=== PATIENT | female | born 1955 | race African-American/Black ===

== ENCOUNTER → 2018-12-07 11:38 | Emergency (ER) | payer MEDICARE, MEDICAID ==
[~2018-12-07 11:38] MED LIST: Acetaminophen TAB* 325 MG PO ONE
--- NOTE | 2018-12-07 13:55 | ED ---
Upper Extremity Pain - HPI Summary HPI Summary: A 63 y/o F presents to ED s/p mechanical fall c/o R hand pain onset approx 1130. Patient fell in the driveway while getting out of the car. She denies head trauma and was able to ambulate afterwards. She twisted her R 4th finger, it is numb, swollen and bruised. She takes Coumadin. Denies recreational drugs, ETOH. 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 - History of Current Complaint Chief Complaint: EDFall Stated Complaint: FELL DOWN/HURT PER PT Time Seen by Provider: 12/07/18 13:50 Hx Obtained From: Patient, Family/[employer] Mechanism Of Injury: Other - fall Onset/Duration: Started Hours Ago, Traumatic - fall, Still Present Timing: Constant Severity Initially: Severe Severity Currently: Severe Pain Location: Finger - Right 4th finger Associated Signs & Symptoms: Positive: Swelling, Bruising, Numbness/Tingling, Other - neg: chills, erythema of eyes, sore throat, cough, abdominal pain, dysuria, hematuria, edema, rash, or dizziness. Negative: Fever, Chest Pain, SOB , Nausea, Vomiting - Allergies/Home Medications Allergies/Adverse Reactions: Allergies Allergy/AdvReac Type Severity Reaction Status Date / Time Adhesive Tape Allergy Rash Verified 12/07/18 11:52 nicardipine Allergy Difficulty Verified 12/07/18 11:52 Breathing Sulfa (Sulfonamide Allergy Unknown Verified 12/07/18 11:52 Antibiotics) Reaction Details PMH/Surg Hx/FS Hx/Imm Hx Previously Healthy: No Endocrine/Hematology History: Reports: Hx Anticoagulant Therapy, Hx Systemic Lupus Erythematosus Denies: Hx Diabetes, Hx Thyroid Disease Comment Only: Other Endocrine/Hematological Disorders - Lupus Cardiovascular History: Reports: Hx Deep Vein Thrombosis, Hx Hypertension - on med, Other Cardiovascular Problems/Disorders - CVA Respiratory History: Reports: Hx Asthma - ?uses albuterol and possibly another medication, Hx Chronic Obstructive Pulmonary Disease (COPD) - ? GI History: Reports: Other GI Disorders - Hx Hep C Denies: Hx Ulcer History: Reports: Hx Acute Renal Failure, Hx Renal Disease - stage 2 per pt, Other Problems/Disorders - Hx genital herpes simplex Denies: Hx Dialysis Sensory History: Denies: Hx Cataracts, Hx Contacts or Glasses, Hx Eye Injury, Hx Eye Prosthesis, Hx Glaucoma, Hx Macular Degeneration, Hx Vision Problem, Hx Deafness , Hx Hearing Aid, Hx Hearing Problem, Other Sensory Impairments Opthamlomology History: Denies: Hx Cataracts, Hx Contacts or Glasses, Hx Eye Injury, Hx Eye Prosthesis, Hx Glaucoma, Hx Macular Degeneration, Hx Vision Problem, Other Sensory Impairments Neurological History: Reports: 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 THYROIDECTOMY - Immunization History Date of Tetanus Vaccine: unknown Infectious Disease History: No Infectious Disease History: Denies: Hx Clostridium Difficile, Hx Hepatitis, Hx Human Immunodeficiency Virus (HIV), Hx of Known/Suspected MRSA, Hx Shingles, Hx Tuberculosis, Hx Known/ Suspected VRE, Hx Known/Suspected VRSA, History Other Infectious Disease, Traveled Outside the [place] in Last 30 Days - Family History Family History: neg: breast CA - Social History Occupation: Disabled Lives: With Family Alcohol Use: None Alcohol Amount: none in 4 yrs Hx Substance Use: No Substance Use Type: Reports: None Hx Tobacco Use: Yes - not currently smoking Smoking Status (MU): Former Smoker Amount Used/How Often: started smoking at 16 y.o. Have You Smoked in the Last Year: No Review of Systems Negative: Fever, Chills Negative: Erythema Negative: Sore Throat Negative: Chest Pain Negative: Shortness Of Breath, Cough Negative: Abdominal Pain, Vomiting, Nausea Negative: dysuria, hematuria Musculoskeletal: Other - pos: swelling to R 4th finger Positive: Myalgia - R 4th finger. Negative: Edema Positive: Bruising - R 4th finger Neurological: Other - neg: dizziness All Other Systems Reviewed And Are Negative: Yes Physical Exam - Summary Physical Exam Summary: Constitutional: Well-developed, Well-nourished, Alert, Cooperative Skin: Warm, Dry HENT: Normocephalic; No Racoons eyes; No roque's sign; No abrasion; No contusion; No hemotympanum; No maxilla facial tenderness or instability; Dentition are smooth; No dental trauma; No trismus Eyes: EOM normal, PERRL Neck: Trachea is midline. No stridor; No JVD; No step off; No posterior cervical spine tenderness Cardio: Rhythm regular, rate normal Heart sounds normal; Intact distal pulses; The pedal pulses are 2+ and symmetric. Radial pulses are 2+ and symmetric. Pulmonary/Chest wall: Effort normal; Breath sounds normal; Equal chest rise; No flail segment; No rib tenderness; No sternal tenderness Abd: Soft, Appearance normal. No distension; No tenderness; No palpable pulsatile mass; No Cullens sign; No Gordillo-Turners sign Musculoskeletal: No snuff box tenderness to R hand; tenderness over metacarpals on R hand; PIP of R 4th finger is swollen. Full ROM and no tenderness at hips, ankles, shoulders, elbows and knees; No vertebral body tenderness; No paraspinal tenderness; No step off or deformity of the spine; Pelvis is stable to lateral compression and rock Neuro: Alert, Oriented x3, Strength 5/5 all extremities. Psych: Mood and affect Normal Triage Information Reviewed: Yes Vital Signs On Initial Exam: Initial Vitals Temp Pulse Resp BP Pulse Ox 97.2 F 59 16 132/74 97 12/07/18 11:48 12/07/18 11:48 12/07/18 11:48 12/07/18 11:48 12/07/18 11:48 Vital Signs Reviewed: Yes Diagnostics - Vital Signs Vital Signs Temp Pulse Resp BP Pulse Ox 12/07/18 11:48 97.2 F 59 16 132/74 97 - Laboratory Lab Statement: Any lab studies that have been ordered have been reviewed, and results considered in the medical decision making process. - Radiology R HAND XR Radiology Interpretation Completed By: ED Physician Summary of Radiographic Findings: Proximal phalanx fracture including joint space. Re-Evaluation - Re-Evaluation 1 Re-Evaluation Time: 15:45 Change: Unchanged Comment: Discussing XR and plans for discharge. Placing finger splint. Course/Dx - Course Course Of Treatment: Patient is a 63 y/o F presenting s/p mechanical fall c/o R hand pain onset approx 1130. She denies head trauma and was able to ambulate afterwards. She twisted her R 4th finger, it is numb, swollen and bruised. PE finds no snuff box tenderness to R hand; tenderness over metacarpals on R hand; PIP of R 4th finger is swollen. R hand XR shows a proximal phalanx fracture including joint space as viewed by ED provider. Splint placed. Will discharge home to follow up with Dr. Bolivar in 2-3 days. Tylenol and Motrin for pain. - Diagnoses Provider Diagnoses: Fracture of proximal phalanx of right ring finger Discharge - Sign-Out/Discharge Documenting (check all that apply): Patient Departure - D/C Patient Received Moderate/Deep Sedation with Procedure: No - Discharge Plan Condition: Stable Disposition: HOME Patient Education Materials: Finger Fracture (ED) Referrals: Brad Galarza MD [Primary Care Provider] - Dylan Bolivar MD [Medical Doctor] - 3 Days Additional Instructions: Take Tylenol and Motrin for pain as needed. Follow up with sandra Neumann, in 2-3 days. Return to the emergency department for changing or worsening symptoms. - Billing Disposition and Condition Condition: STABLE Disposition: Home - Attestation Statements Document Initiated by Scribe: Yes Documenting Scribe: Laura Wise Provider For Whom Scribe is Documenting (Include Credential): Dr. Keaton Sheehan MD Scribe Attestation: Laura Mosqueda scribed for Dr. Keaton Sheehan MD on 12/08/18 at 1049. Scribe Documentation Reviewed: Yes Provider Attestation: The documentation as recorded by the Laura leung accurately reflects the service I personally performed and the decisions made by , Dr. Keaton Sheehan MD Status of Scribe Document: Viewed
[2018-12-07 15:52] VITALS: BP 144/76
== END | disposition home or self-care (01) ==
LOC: ED 11:38
DX: S62.614A Displaced fracture of proximal phalanx of right ring finger, initial encounter for closed fracture (principal); W19.XXXA Unspecified fall, initial encounter; Y92.9 Unspecified place or not applicable; Z79.01 Long term (current) use of anticoagulants; Z86.73 Personal history of transient ischemic attack (TIA), and cerebral infarction without residual deficits; Z88.2 Allergy status to sulfonamides; Z87.39 Personal history of other diseases of the musculoskeletal system and connective tissue; I10 Essential (primary) hypertension; Z87.891 Personal history of nicotine dependence; N19 Unspecified kidney failure; M19.041 Primary osteoarthritis, right hand
CPT/HCPCS: 99282; A9270-GY

== ENCOUNTER 2021-12-06 12:03 | Inpatient (IN) ==
[2021-12-06 12:48] LABS: ABS Eosinophils 0.1 10^3/ul (0-0.6); ABS Lymphocytes 1.8 10^3/ul (1.0-4.8); ABS Monocytes 0.3 10^3/ul (0-0.8); ABS Neutrophils 6.4 10^3/ul (1.5-7.7); Eosinophil % 1.2 %; Hematocrit 30 % (35-47); Hemoglobin 9.6 g/dL (12.0-16.0); Lymphocyte % 21.1 %; Mean Corpuscular HGB Conc 32 g/dL (31-36); Mean Corpuscular Hemoglobin 29 pg (27-31); Mean Corpuscular Volume 92 fL (80-97); Mean Platelet Volume 10.2 fL (7.4-10.4); Platelet Count 221 10^3/uL (150-450); Red Blood Count 3.27 10^6 /uL (3.70-4.87); Red Cell Distribution Width 17 % (10-15); White Blood Count 8.6 10^3/uL (3.5-10.8)
[2021-12-06] MEDS ORDERED: Dexamethasone IV 4 MG/ML VIAL 1 ml VIAL IV SLOW PU ONE (12:58)
[2021-12-06] MEDS ORDERED: Albuterol HFA INHALER 8 gm MDI INH ONE (12:58)
[2021-12-06 12:59] LABS: INR 2.99 (0.86-1.15)
[2021-12-06 13:21] LABS: Albumin 2.7 g/dL (3.2-5.2); Albumin/Globulin Ratio 0.8 (1-3); Calcium 7.8 mg/dL (8.6-10.3); Globulin 3.2 g/dL (2-4); Total Bilirubin 0.4 mg/dL (0.2-1.0); Total Protein 5.9 g/dL (6.4-8.9); eGFR CKD-EPI 29.9 (>60)
[2021-12-06 14:30] LABS: High Sensitivity Troponin 1 Hr 22 pg/mL (<15)
[2021-12-06] MEDS ORDERED: cefTRIAXone 1 gm/50 mL D5W 1 GM/50 ML BAG IV ONE (16:01)
[2021-12-06] MEDS ORDERED: Azithromycin 500 mg/250 ml NS 500 MG/250 ML BAG IVPB ONE (16:01)
[2021-12-06] MEDS ORDERED: NS 0.9% 1000 ml BAG 1,000 ML IV ONE (16:07)
[2021-12-06] MEDS ORDERED: Warfarin - No Order Today **NOTE FOLLOW UP ONE (17:00)
[2021-12-06 17:48] LABS: Urine Appearance Cloudy; Urine Bilirubin Negative (Negative); Urine Blood Negative (Negative); Urine Color Yellow; Urine Glucose 1+(50 mg/dL) (Negative); Urine Ketones Negative (Negative); Urine Nitrite Negative (Negative); Urine Protein 3+(>=500 mg/dL) (Negative); Urine Specific Gravity 1.009 (1.002-1.030); Urine Urobilinogen Negative (Negative)
[2021-12-06 17:52] LABS: Urine Bacteria Absent (Absent); Urine Red Blood Cell Absent (Absent); Urine Squamous Epithelial Cell Present (Absent); Urine White Blood Cell Absent (Absent)
[2021-12-06 18:02] LABS: Urine Creatinine Concentration 46.4 mg/dL
[2021-12-06 18:40] LABS: Urine Osmo 360 mOsm/kg (150-1150)
[2021-12-06] MEDS ORDERED: SODIUM ZIRCONIUM CYCLOSILICATE 10 GM PACKET PO ONE (18:58)
[2021-12-06] MEDS ORDERED: Warfarin per PHARMACY **NOTE FOLLOW UP SCH (19:00)
[2021-12-06] MEDS ORDERED: Enoxaparin 40 MG/0.4 ML SYR SUBCUT SCH (19:00)
[2021-12-06 19:17] LABS: C Reactive Protein 38.67 mg/L (<8.01); Magnesium 1.3 mg/dL (1.9-2.7); Phenytoin 3.7 mcg/mL (10-20)
[2021-12-06 19:31] LABS: TSH Ultra Thyroid Stim Horm 5.14 mcIU/mL (0.34-5.60)
[2021-12-06] MEDS ORDERED: Magnesium Sulf 4 GM/100 ML IV 4,000 MG/100 ML BAG IVPB ONE (19:47)
[2021-12-06] MEDS ORDERED: hydrALAZINE 20 mg/ml 1 ML Vial IV IV SLOW PU PRN (19:54)
[2021-12-06] MEDS: Albuterol HFA INHALER 8 gm MDI INH PRN (20:25)
[2021-12-06] MEDS: Phenytoin 100 mg ER CAP PO SCH (20:27)
[2021-12-06 20:29] LABS: PCO2 Arterial 25 mmHg (35-45); PO2 Arterial 92 mmHg (80-100)
[2021-12-06 21:02] LABS: Calcium 7.4 mg/dL (8.6-10.3); eGFR CKD-EPI 31.9 (>60)
[2021-12-06 21:04] LABS: Potassium 6.2 mmol/L (3.5-5.0)
[2021-12-06] MEDS ORDERED: Dextrose 50% Syringe 50 ml 25 GM/50 ML SYRINGE IV PUSH ONE (21:09)
[2021-12-06 21:28] LABS: Osmolality Serum 306 mOsm/kg (275-295)
[2021-12-06] MEDS ORDERED: NS 0.9% 1000 ml BAG 1,000 ML IV SCH (21:30)
[2021-12-06] MEDS: CYCLOSPORINE 25 MG PO SCH (22:38)
[2021-12-07 07:03] LABS: ABS Monocytes 0.6 10^3/ul (0-0.8); Eosinophil % 0.5 %; Hematocrit 26 % (35-47); Hemoglobin 8.4 g/dL (12.0-16.0); Lymphocyte % 26.2 %; Mean Corpuscular HGB Conc 33 g/dL (31-36); Mean Corpuscular Hemoglobin 30 pg (27-31); Mean Corpuscular Volume 92 fL (80-97); Mean Platelet Volume 10.4 fL (7.4-10.4); Platelet Count 185 10^3/uL (150-450); Red Blood Count 2.78 10^6 /uL (3.70-4.87); Red Cell Distribution Width 17 % (10-15); White Blood Count 7.7 10^3/uL (3.5-10.8)
[2021-12-07 07:09] LABS: INR 2.65 (0.86-1.15)
[2021-12-07 07:34] LABS: Albumin 2.2 g/dL (3.2-5.2); Albumin/Globulin Ratio 0.8 (1-3); C Reactive Protein 22.9 mg/L (<8.01); Calcium 7.3 mg/dL (8.6-10.3); Globulin 2.9 g/dL (2-4); Total Bilirubin 0.2 mg/dL (0.2-1.0); Total Protein 5.1 g/dL (6.4-8.9); eGFR CKD-EPI 32.1 (>60)
[2021-12-07 07:37] LABS: Potassium 5.3 mmol/L (3.5-5.0)
[2021-12-07] MEDS: CYCLOSPORINE 25 MG PO SCH (08:24)
[2021-12-07] MEDS: Cholecalciferol (VIT D3) 1,000 unit TAB PO SCH (08:24)
[2021-12-07] MEDS: Aspirin EC 81 mg TAB.EC (enteric coated) PO SCH (08:24)
[2021-12-07] MEDS: SODIUM ZIRCONIUM CYCLOSILICATE 10 GM PACKET PO SCH (08:26)
[2021-12-07 08:29] LABS: Magnesium 2.2 mg/dL (1.9-2.7)
[2021-12-07] MEDS: Albuterol HFA INHALER 8 gm MDI INH PRN (08:52)
[2021-12-07 15:37] LABS: Calcium 7.6 mg/dL (8.6-10.3); Potassium 5.6 mmol/L (3.5-5.0)
[2021-12-07 15:43] LABS: eGFR CKD-EPI 31.9 (>60)
[2021-12-07] MEDS: Azithromycin 500 mg/250 ml NS 500 MG/250 ML BAG IVPB SCH (17:50)
[2021-12-07] MEDS: CYCLOSPORINE 100 MG PO SCH (19:15)
[2021-12-07] MEDS: Phenytoin 100 mg ER CAP PO SCH (19:50)
[2021-12-07] MEDS: cefTRIAXone 1 gm/50 mL D5W 1 GM/50 ML BAG IV SCH (19:53)
[2021-12-07] MEDS: Albuterol 2.5mg/3 ml (0.083%) NEB.SOLN INH PRN (20:50)
[2021-12-08 07:12] LABS: INR 1.7 (0.86-1.15)
[2021-12-08 07:51] LABS: ABS Eosinophils 0.1 10^3/ul (0-0.6); ABS Lymphocytes 2.4 10^3/ul (1.0-4.8); ABS Monocytes 0.7 10^3/ul (0-0.8); ABS Neutrophils 5.8 10^3/ul (1.5-7.7); Eosinophil % 1.5 %; Hematocrit 27 % (35-47); Hemoglobin 8.8 g/dL (12.0-16.0); Lymphocyte % 26.5 %; Mean Corpuscular HGB Conc 32 g/dL (31-36); Mean Corpuscular Hemoglobin 30 pg (27-31); Mean Corpuscular Volume 94 fL (80-97); Mean Platelet Volume 10.8 fL (7.4-10.4); Nucleated Red Blood Cells % 0.1; Platelet Count 214 10^3/uL (150-450); Red Blood Count 2.89 10^6 /uL (3.70-4.87); Red Cell Distribution Width 17 % (10-15); White Blood Count 9.1 10^3/uL (3.5-10.8)
[2021-12-08] MEDS: CYCLOSPORINE 100 MG PO SCH ×2 (07:55→17:17)
[2021-12-08] MEDS: Aspirin EC 81 mg TAB.EC (enteric coated) PO SCH (07:55)
[2021-12-08] MEDS: Cholecalciferol (VIT D3) 1,000 unit TAB PO SCH (07:55)
[2021-12-08] MEDS: SODIUM ZIRCONIUM CYCLOSILICATE 10 GM PACKET PO SCH (07:56)
[2021-12-08] MEDS: Albuterol HFA INHALER 8 gm MDI INH PRN (08:12)
[2021-12-08] MEDS: Azithromycin 500 mg/250 ml NS 500 MG/250 ML BAG IVPB SCH (15:27)
[2021-12-08] MEDS: cefTRIAXone 1 gm/50 mL D5W 1 GM/50 ML BAG IV SCH (16:58)
[2021-12-08] MEDS: Phenytoin 100 mg ER CAP PO SCH (21:18)
[2021-12-08] MEDS: Albuterol 2.5mg/3 ml (0.083%) NEB.SOLN INH PRN (21:39)
[2021-12-09] MEDS: SODIUM ZIRCONIUM CYCLOSILICATE 10 GM PACKET PO SCH (07:50)
[2021-12-09] MEDS: Aspirin EC 81 mg TAB.EC (enteric coated) PO SCH (07:51)
[2021-12-09] MEDS: Cholecalciferol (VIT D3) 1,000 unit TAB PO SCH (07:51)
[2021-12-09] MEDS: CYCLOSPORINE 100 MG PO SCH (07:52)
[2021-12-09 09:00] LABS: Calcium 7.6 mg/dL (8.6-10.3); Potassium 4.9 mmol/L (3.5-5.0); eGFR CKD-EPI 36.6 (>60)
[2021-12-09 11:34] VITALS: BP 165/65
[2021-12-09 11:42] LABS: INR 1.5 (0.86-1.15)
[2021-12-11 18:42] LABS: Complement C3 111 mg/dL (75 - 175)
[2021-12-11 22:35] LABS: ds DNA Ab w/ Reflex < 12.3 IU/mL
== END 2021-12-09 17:14 | disposition home or self-care (01) | DRG 194 ==
LOC: ED 12:03 → EDHOLD 12:03 → SUATTDRO 18:10 → MED 23:20
PROVIDERS: ADMIT Internal Medicine; ATTEND Internal Medicine